=== PATIENT | female | born 1975 | race Caucasian/White ===

== ENCOUNTER 2016-09-19 19:39 | Emergency (ER) | payer BC ==
[~2016-09-19 19:39] MED LIST: HYDROCODON-ACE1 EA16 PO; NORCO 5-325 TA1 EACH PO; TYLENOL325 M2 PO; [UNRECOGNIZED DRUG - REMARK]
[2016-09-19] MEDS ORDERED: PREDNISONE10 M1 PO (20:13)
[2016-09-19] MEDS ORDERED: FOLIC ACID1 M1 PO (20:14)
[2016-09-19] MEDS ORDERED: MELOXICAM7.5 M1 PO (20:14)
[2016-09-19] MEDS ORDERED: METHOTREXATE (20:15)
[2016-09-19] MEDS ORDERED: NORCO 5/3251 TAB PO (20:24)
== END 2016-09-19 21:19 ==
LOC: EDMED 19:39
DX: M25.531 Pain in right wrist (principal); M25.561 Pain in right knee; G89.29 Other chronic pain; F17.210 Nicotine dependence, cigarettes, uncomplicated
CPT/HCPCS: J1170

== ENCOUNTER 2016-11-25 09:34 | Emergency (ER) | payer BC ==
[~2016-11-25 09:34] MED LIST changes: +FOLIC ACID1 M1 PO; +MELOXICAM7.5 M1 PO; +METHOTREXATE; +NORCO 5/3251 TAB PO; +PREDNISONE10 M1 PO
[2016-11-25] MEDS ORDERED: HUMIRA40 MG/0.3 SC (09:57)
[2016-11-25 11:53] LABS: BASO % 0.2 % (0-2); EOS % 0.7 % (0-7); EOSINOPHIL ABSOLUTE COUNT 0.1 tho/cmm (0.0-0.7); HCT-HEMATOCRIT 41.5 % (34.0-49.0); IMMATURE GRANULOCYTES ABSOLUTE 0.05 tho/cmm (0-0.03); IMMATURE GRANULOCYTES PERCENT 0.4 % (0-0.3); LYMPH % 22.8 % (20-45); LYMPH ABSOLUTE COUNT 2.9 tho/cmm (0.8-4.5); MCH (MEAN CORPUSCULAR HGB) 31.3 pg (28.0-32.0); MCHC MEAN CORPUSCULAR HGB CONC 33.7 % (32.0-36.0); MCV (MEAN CELL VOLUME) 92.8 fl (82.0-96.0); MONO % 4.2 % (0-12); MONOCYTE ABSOLUTE COUNT 0.5 tho/cmm (0.0-1.2); NEUTROPHIL ABSOLUTE COUNT 9.1 tho/cmm (1.6-8.0); NEUTROPHIL-AUTOMATED 9.1 tho/cmm (1.6-8.0); NEUTROPHILS % 71.7 % (40-80); RED BLOOD COUNT 4.47 mil/cmm (4.00-5.20); RED CELL DISTRIBUTION WIDTH 13.9 % (12.4-16.4); WHITE BLOOD COUNT 12.7 tho/cmm (4.0-10.0)
[2016-11-25 12:20] LABS: ALB/GLOB RATIO 0.9 (0.8-2.0); ALBUMIN 3.6 g/dl (3.5-5.0); ANION GAP 13 mmol/L (0-20); BILIRUBIN,TOTAL 0.5 mg/dl (0-1.5); BLOOD UREA NITROGEN 14 mg/dl (6-24); CALCIUM 8.8 mg/dl (8.5-10.5); CARBON DIOXIDE-VENOUS 21 mmol/L (22-32); CHLORIDE 107 mmol/l (96-110); CREATININE 1.03 mg/dl (0.50-1.10); GLUCOSE 135 mg/dL (70-110); SODIUM 137 mmol/L (135-145); eGFR VALUE FOR BLACK 79 mL/Min
[2016-11-25 12:21] LABS: ALKALINE PHOSPHATASE 64 U/L (33-138); ALT/SGPT 32 U/L (12-78); AST/SGOT 22 U/L (10-40); LIPASE 144 U/L (73-393); POTASSIUM 4.4 mmol/L (3.7-5.1)
[2016-11-25 13:05] LABS: BASO % 0.2 % (0-2); EOS % 0.9 % (0-7); EOSINOPHIL ABSOLUTE COUNT 0.1 tho/cmm (0.0-0.7); HCT-HEMATOCRIT 38.6 % (34.0-49.0); HGB-HEMOGLOBIN 12.8 gm/dl (12.0-15.5); IMMATURE GRANULOCYTES ABSOLUTE 0.04 tho/cmm (0-0.03); IMMATURE GRANULOCYTES PERCENT 0.3 % (0-0.3); LYMPH % 25.5 % (20-45); LYMPH ABSOLUTE COUNT 3.1 tho/cmm (0.8-4.5); MCH (MEAN CORPUSCULAR HGB) 30.7 pg (28.0-32.0); MCHC MEAN CORPUSCULAR HGB CONC 33.2 % (32.0-36.0); MCV (MEAN CELL VOLUME) 92.6 fl (82.0-96.0); MEAN PLATELET VOLUME 8.8 cmc (9.4-12.4); MONO % 5.8 % (0-12); MONOCYTE ABSOLUTE COUNT 0.7 tho/cmm (0.0-1.2); NEUTROPHIL ABSOLUTE COUNT 8.2 tho/cmm (1.6-8.0); NEUTROPHIL-AUTOMATED 8.2 tho/cmm (1.6-8.0); NEUTROPHILS % 67.3 % (40-80); RED BLOOD COUNT 4.17 mil/cmm (4.00-5.20); RED CELL DISTRIBUTION WIDTH 13.9 % (12.4-16.4); WHITE BLOOD COUNT 12.1 tho/cmm (4.0-10.0)
[2016-11-25 13:09] LABS: PLATELET COUNT 279 tho/cmm (150-450)
[2016-11-25 14:06] LABS: URINE BILIRUBIN NEGATIVE (NEG); URINE BLOOD SMALL (NEG); URINE GLUCOSE (UA) NEGATIVE (NEG); URINE KETONE NEGATIVE (NEG); URINE LEUKOCYTE ESTERASE NEGATIVE (NEG); URINE NITRITE NEGATIVE (NEG); URINE PROTEIN NEGATIVE (NEG)
[2016-11-25 14:08] LABS: URINE APPEARANCE HAZY; URINE COLOR YELLOW
[2016-11-25 14:09] LABS: URINE AMORPHOUS 2+; URINE EPITHELIAL CELLS 0-2 /[HPF] (0-10); URINE RBC 0-2 /[HPF] (0-5); URINE WBC 0 /[HPF] (0-5)
[2016-11-25] MEDS ORDERED: ZOFRAN4 M2 PO (15:13)
[2016-11-25] MEDS ORDERED: NORCO 5-325 TA1 EACH PO (15:13)
== END 2016-11-25 15:35 ==
LOC: EDMED 09:34
PROVIDERS: Emergency Medicine; Physician Assistant
DX: R10.32 Left lower quadrant pain (principal); G43.909 Migraine, unspecified, not intractable, without status migrainosus; M06.9 Rheumatoid arthritis, unspecified; Z90.89 Acquired absence of other organs; F17.210 Nicotine dependence, cigarettes, uncomplicated
CPT/HCPCS: J2270; J2405; J7030; Q9967